=== PATIENT | female | born 1940 | race Caucasian/White ===

== ENCOUNTER 2021-09-02 22:17 | Inpatient (IN) ==
[2021-09-02] MEDS ORDERED: ALUM/MAG/SIMETH/LIDO VISC 1:1 30 ML BOTTLE PO ONE (22:52)
[2021-09-02] MEDS ORDERED: ALUM/MAG/SIMETH/LIDO VISC 1:1 30 ML BOTTLE PO STA (22:54)
[2021-09-02 23:02] LABS: Basophils # 0.1 10*3/uL (0.0-0.2); Basophils % 0.4 % (0.0-0.8); Eosinophils # 0.4 10*3/uL (0.0-0.87); Eosinophils % 3.1 % (0.00-10.9); Hematocrit 35.4 VOL% (35.7-47.0); Hemoglobin 10.9 GM/DL (12.0-16.0); Immature Granulocytes % 0.7 %; Lymphocytes # 2.9 10*3/uL (1.4-4.0); Lymphocytes % 21.3 % (21.3-54.2); Mean Corpuscular HGB Conc 30.8 GM/DL (32-36); Mean Corpuscular Volume 81.6 FL (87-102); Monocytes % 8.6 % (1.7-12.7); Neutrophils % 65.9 % (38.7-73.9); Platelet Count 423 T/CUMM (130-400); Red Blood Count 4.34 MC/CUMM (3.8-5.5); Red Cell Distribution Width 16.9 % (9.3-17.3); White Blood Count 13.7 T/CUMM (4-12)
[2021-09-02] MEDS ORDERED: ONDANSETRON 4 MG/2 ML VIAL IV ONE (23:06)
[2021-09-02] MEDS ORDERED: MORPHINE 2 MG/1 ML SYRINGE IV STA (23:06)
[2021-09-02 23:17] LABS: INR 0.9; PT Patient Result 10.6 SECS (10.5-12.0)
[2021-09-02 23:33] LABS: Albumin 3.6 G/DL (3.4-5.0); Bilirubin,Total 0.5 MG/DL (0.20-1.00); Calcium 9.3 MG/DL (8.5-10.1); Potassium 4.1 MMOL/L (3.5-5.1); Total Protein 7.5 G/DL (6.4-8.2)
[2021-09-03] MEDS ORDERED: HYDROmorphone 2 MG/1 ML VIAL IV STA (00:13)
[2021-09-03] MEDS ORDERED: PANTOPRAZOLE 40 MG VIAL IV STA (00:16)
[2021-09-03] MEDS ORDERED: LEVOFLOXACIN INJ 500 MG/100 ML PREMIX IV ONE (00:16)
[2021-09-03] MEDS ORDERED: PROMETHAZINE 25 MG/1 ML VIAL ONE ×2 (02:16→08:05)
[2021-09-03] MEDS ORDERED: ENOXAPARIN 40 MG/0.4 ML SYRINGE ONE (03:40)
[2021-09-03] MEDS ORDERED: ONDANSETRON 4 MG/2 ML VIAL ONE ×2 (07:18→13:35)
[2021-09-03] MEDS ORDERED: HYDROmorphone 2 MG/1 ML VIAL ONE ×3 (07:19→13:36)
[2021-09-03] MEDS ORDERED: PROMETHAZINE 25 MG/1 ML VIAL IM PRN (14:07)
[2021-09-03] MEDS ORDERED: hydrALAZINE 20 MG/1 ML VIAL IV PRN (14:07)
[2021-09-03] MEDS ORDERED: SIMETHICONE CHEW 125 MG TABLET PO PRN (14:07)
[2021-09-03] MEDS ORDERED: ONDANSETRON 4 MG/2 ML VIAL IV PRN (14:07)
[2021-09-03] MEDS ORDERED: DOCUSATE SODIUM 100 MG CAPSULE PO PRN (14:07)
[2021-09-03] MEDS ORDERED: GLUCAGON 1 MG VIAL IM PRN (14:07)
[2021-09-03] MEDS ORDERED: DEXTROSE 50% 25 GM/50 ML SYRINGE IV PRN (14:16)
[2021-09-03] MEDS: LACTATED RINGERS 1,000 ML IV SCH (14:45)
[2021-09-03 15:25] LABS: Hematocrit 33.5 VOL% (35.7-47.0); Hemoglobin 10.3 GM/DL (12.0-16.0); Lymphocytes % 17.3 % (21.3-54.2); Mean Corpuscular HGB Conc 30.7 GM/DL (32-36); Mean Corpuscular Volume 82.5 FL (87-102); Mean Platelet Volume 8.9 FL (9.6-12.0); Neutrophils % 67.7 % (38.7-73.9); Platelet Count 425 T/CUMM (130-400); Red Blood Count 4.06 MC/CUMM (3.8-5.5); Red Cell Distribution Width 16.8 % (9.3-17.3); White Blood Count 14.3 T/CUMM (4-12)
[2021-09-03 15:26] LABS: Basophils # 0.1 10*3/uL (0.0-0.2); Basophils % 0.5 % (0.0-0.8); Eosinophils # 0.6 10*3/uL (0.0-0.87); Eosinophils % 4.3 % (0.00-10.9); Immature Granulocytes % 0.7 %; Lymphocytes # 2.5 10*3/uL (1.4-4.0); Monocytes % 9.5 % (1.7-12.7)
[2021-09-03 15:27] LABS: Platelet Estimate Normal
[2021-09-03 16:47] LABS: Osmolality,Calculated 277.7 MOS/KG (273-304); Potassium 4.4 MMOL/L (3.5-5.1)
[2021-09-03] MEDS: HYDROmorphone 2 MG/1 ML VIAL IV PRN ×2 (17:00→21:59)
[2021-09-03 19:31] LABS: HDL Cholesterol 59 MG/DL (40-60); Risk Ratio 2.61; Thyroid Stimulating Hormone < 0.005 uIU/ml (0.358-3.74); Triglycerides 73 MG/DL (2-150); VLDL Cholesterol 14.6 MG/DL
[2021-09-03] MEDS: methylPREDNISolone SOD SUC 40 MG/1 ML VIAL IV SCH (21:51)
[2021-09-04] MEDS: methylPREDNISolone SOD SUC 40 MG/1 ML VIAL IV SCH ×3 (00:35→12:30)
[2021-09-04] MEDS: LACTATED RINGERS 1,000 ML IV SCH ×4 (00:41→23:56)
[2021-09-04] MEDS: LEVOFLOXACIN INJ 500 MG/100 ML PREMIX IV SCH (01:22)
[2021-09-04] MEDS: HYDROmorphone 2 MG/1 ML VIAL IV PRN ×4 (02:17→21:40)
[2021-09-04] MEDS: ACETAMINOPHEN 325 MG TABLET PO PRN (04:27)
[2021-09-04 05:14] LABS: Basophils % 0.4 % (0.0-0.8); Eosinophils # 0.1 10*3/uL (0.0-0.87); Eosinophils % 0.5 % (0.00-10.9); Hematocrit 32.1 VOL% (35.7-47.0); Hemoglobin 9.5 GM/DL (12.0-16.0); Immature Granulocytes % 0.8 %; Immature Granulocytes Absolute 0.08 #; Lymphocytes # 1.2 10*3/uL (1.4-4.0); Lymphocytes % 11.5 % (21.3-54.2); Mean Corpuscular HGB Conc 29.6 GM/DL (32-36); Mean Corpuscular Volume 83.6 FL (87-102); Mean Platelet Volume 9.1 FL (9.6-12.0); Monocytes % 1.6 % (1.7-12.7); Neutrophils % 85.2 % (38.7-73.9); Platelet Count 319 T/CUMM (130-400); Red Blood Count 3.84 MC/CUMM (3.8-5.5); Red Cell Distribution Width 16.9 % (9.3-17.3); White Blood Count 10.2 T/CUMM (4-12)
[2021-09-04] MEDS: LEVOTHYROXINE 150 MCG TABLET PO SCH (05:38)
[2021-09-04 05:45] LABS: Calcium 8.3 MG/DL (8.5-10.1); Osmolality,Calculated 274.8 MOS/KG (273-304)
[2021-09-04] MEDS: ASPIRIN EC 81 MG TABLET PO SCH (09:52)
[2021-09-04] MEDS: PANTOPRAZOLE 40 MG TABLET PO SCH (09:52)
[2021-09-04] MEDS: ENOXAPARIN 40 MG/0.4 ML SYRINGE SUBCUT SCH (09:53)
[2021-09-04] MEDS: ISOSORBIDE MONONITRATE 30 MG TABLET PO SCH (09:53)
[2021-09-04] MEDS: ALBUTEROL/IPRATROPIUM 3 ML NEB RESP TX SCH ×3 (12:29→20:03)
[2021-09-05] MEDS: LEVOFLOXACIN INJ 500 MG/100 ML PREMIX IV SCH (00:09)
[2021-09-05] MEDS: methylPREDNISolone SOD SUC 40 MG/1 ML VIAL IV SCH ×3 (00:09→23:08)
[2021-09-05] MEDS: ALBUTEROL/IPRATROPIUM 3 ML NEB RESP TX SCH ×4 (01:01→19:45)
[2021-09-05] MEDS: LACTATED RINGERS 1,000 ML IV SCH ×3 (01:25→17:40)
[2021-09-05] MEDS: HYDROmorphone 2 MG/1 ML VIAL IV PRN ×3 (05:13→23:08)
[2021-09-05 05:53] LABS: Basophils % 0.1 % (0.0-0.8); Hematocrit 31.2 VOL% (35.7-47.0); Hemoglobin 9.5 GM/DL (12.0-16.0); Immature Granulocytes % 0.5 %; Immature Granulocytes Absolute 0.04 #; Lymphocytes # 0.6 10*3/uL (1.4-4.0); Lymphocytes % 8.1 % (21.3-54.2); Mean Corpuscular HGB Conc 30.4 GM/DL (32-36); Mean Corpuscular Volume 82.8 FL (87-102); Mean Platelet Volume 8.8 FL (9.6-12.0); Monocytes % 2.5 % (1.7-12.7); Neutrophils % 88.8 % (38.7-73.9); Platelet Count 304 T/CUMM (130-400); Red Blood Count 3.77 MC/CUMM (3.8-5.5); Red Cell Distribution Width 16.3 % (9.3-17.3); White Blood Count 7.3 T/CUMM (4-12)
[2021-09-05] MEDS: LEVOTHYROXINE 150 MCG TABLET PO SCH (05:55)
[2021-09-05 06:14] LABS: Calcium 8.6 MG/DL (8.5-10.1); Potassium 3.4 MMOL/L (3.5-5.1)
[2021-09-05] MEDS: ENOXAPARIN 40 MG/0.4 ML SYRINGE SUBCUT SCH (08:37)
[2021-09-05] MEDS ORDERED: POTASSIUM CHLORIDE 20 MEQ TABLET PO ONE (09:00)
[2021-09-05] MEDS: ISOSORBIDE MONONITRATE 30 MG TABLET PO SCH (10:12)
[2021-09-05] MEDS: PANTOPRAZOLE 40 MG TABLET PO SCH (10:13)
[2021-09-05] MEDS: ASPIRIN EC 81 MG TABLET PO SCH (10:13)
[2021-09-06] MEDS: ALBUTEROL/IPRATROPIUM 3 ML NEB RESP TX SCH ×5 (00:49→19:41)
[2021-09-06] MEDS: LACTATED RINGERS 1,000 ML IV SCH (03:25)
[2021-09-06 04:47] LABS: Basophils % 0.2 % (0.0-0.8); Hematocrit 29.7 VOL% (35.7-47.0); Hemoglobin 9.2 GM/DL (12.0-16.0); Immature Granulocytes % 1.3 %; Immature Granulocytes Absolute 0.08 #; Lymphocytes # 0.8 10*3/uL (1.4-4.0); Lymphocytes % 13.1 % (21.3-54.2); Mean Corpuscular Volume 81.8 FL (87-102); Mean Platelet Volume 8.4 FL (9.6-12.0); Monocytes % 3.6 % (1.7-12.7); Neutrophils % 81.8 % (38.7-73.9); Platelet Count 274 T/CUMM (130-400); Red Blood Count 3.63 MC/CUMM (3.8-5.5); Red Cell Distribution Width 16.6 % (9.3-17.3); White Blood Count 6.4 T/CUMM (4-12)
[2021-09-06 05:31] LABS: Calcium 8.5 MG/DL (8.5-10.1); Osmolality,Calculated 280.5 MOS/KG (273-304); Potassium 4.4 MMOL/L (3.5-5.1)
[2021-09-06] MEDS: LEVOTHYROXINE 150 MCG TABLET PO SCH (05:35)
[2021-09-06] MEDS ORDERED: LEVOFLOXACIN 500 MG TABLET PO SCH (09:00)
[2021-09-06] MEDS: ISOSORBIDE MONONITRATE 30 MG TABLET PO SCH (09:15)
[2021-09-06] MEDS: PANTOPRAZOLE 40 MG TABLET PO SCH (09:15)
[2021-09-06] MEDS: ASPIRIN EC 81 MG TABLET PO SCH ×2 (09:16→09:20)
[2021-09-06] MEDS: ENOXAPARIN 40 MG/0.4 ML SYRINGE SUBCUT SCH (09:20)
[2021-09-06] MEDS ORDERED: propofoL 200 MG/20 ML VIAL IV ONE ×2 (10:25→11:51)
[2021-09-06] MEDS ORDERED: ETOMIDATE 40 MG/20 ML VIAL IV ONE (10:25)
[2021-09-06] MEDS ORDERED: LIDOCAINE 2% 5 ML VIAL ONE (10:25)
[2021-09-06] MEDS ORDERED: fentaNYL 100 MCG/2 ML VIAL ONE (10:25)
[2021-09-06] MEDS: ACETAMINOPHEN 325 MG TABLET PO PRN (10:26)
[2021-09-06] MEDS ORDERED: LACTATED RINGERS 1,000 ML IV SCH (11:00)
[2021-09-06] MEDS: HYDROmorphone 2 MG/1 ML VIAL IV PRN ×2 (13:29→21:46)
[2021-09-07] MEDS: ACETAMINOPHEN 325 MG TABLET PO PRN ×2 (00:53→10:30)
[2021-09-07] MEDS: ALBUTEROL/IPRATROPIUM 3 ML NEB RESP TX SCH ×2 (01:19→08:07)
[2021-09-07] MEDS: LEVOTHYROXINE 150 MCG TABLET PO SCH (05:51)
[2021-09-07] MEDS ORDERED: ALUMINUM/MAGNES/SIMETH MAX STR 30 ML UDCUP PO PRN (08:17)
[2021-09-07] MEDS ORDERED: methylPREDNISolone 4 MG TABLET PO SCH (09:00)
[2021-09-07] MEDS: ASPIRIN EC 81 MG TABLET PO SCH (09:05)
[2021-09-07] MEDS: ISOSORBIDE MONONITRATE 30 MG TABLET PO SCH (09:05)
[2021-09-07] MEDS: PANTOPRAZOLE 40 MG TABLET PO SCH (09:05)
[2021-09-07] MEDS: LACTATED RINGERS 1,000 ML IV SCH (09:43)
[2021-09-07] MEDS ORDERED: HYOSCYAMINE 0.125 MG TABLET PO SCH (11:30)
[2021-09-07] MEDS: HYDROmorphone 2 MG/1 ML VIAL IV PRN (12:23)
[2021-09-07 15:58] VITALS: BP 113/61
== END 2021-09-07 16:56 | disposition home or self-care (01) | DRG 477 ==
LOC: N.ED 22:17 → SUATTDRO 09-03 14:05 → N.EDINP 09-03 14:05 → N.TELES 09-03 20:38
PROVIDERS: ADMIT Emergency Medicine; ATTEND Internal Medicine

== ENCOUNTER 2021-11-02 08:59 | Inpatient (IN) ==
[2021-11-02] MEDS ORDERED: ONDANSETRON 4 MG/2 ML VIAL ONE (09:32)
[2021-11-02] MEDS ORDERED: HYDROmorphone 2 MG/1 ML VIAL ONE (09:32)
[2021-11-02 09:45] LABS: Basophils % 0.4 % (0.0-0.8); Eosinophils # 0.2 10*3/uL (0.0-0.87); Eosinophils % 2.3 % (0.00-10.9); Hematocrit 34.6 VOL% (35.7-47.0); Hemoglobin 10.9 GM/DL (12.0-16.0); Immature Granulocytes % 0.4 %; Immature Granulocytes Absolute 0.03 #; Lymphocytes # 2.1 10*3/uL (1.4-4.0); Lymphocytes % 26.5 % (21.3-54.2); Mean Corpuscular HGB Conc 31.5 GM/DL (32-36); Mean Platelet Volume 8.7 FL (9.6-12.0); Monocytes % 10.1 % (1.7-12.7); Neutrophils % 60.3 % (38.7-73.9); Platelet Count 280 T/CUMM (130-400); Red Blood Count 4.22 MC/CUMM (3.8-5.5); Red Cell Distribution Width 16.6 % (9.3-17.3); White Blood Count 7.9 T/CUMM (4-12)
[2021-11-02] MEDS ORDERED: SODIUM CHLORIDE 0.9% 1,000 ML IV STA (09:48)
[2021-11-02] MEDS ORDERED: HYDROmorphone 2 MG/1 ML VIAL IV STA ×2 (09:48→09:49)
[2021-11-02] MEDS ORDERED: ONDANSETRON 4 MG/2 ML VIAL IV STA (09:49)
[2021-11-02 09:57] LABS: Albumin 3.4 G/DL (3.4-5.0); Bilirubin,Total 0.4 MG/DL (0.20-1.00); Osmolality,Calculated 277.4 MOS/KG (273-304); Potassium 3.7 MMOL/L (3.5-5.1); Total Protein 6.7 G/DL (6.4-8.2)
[2021-11-02 10:02] LABS: Amorphous Crystals,Urine Occasional /HPF (Few); Bacteria,Urine Occasional /HPF (Few); Bilirubin,Urine Negative (Negative); Blood, Urine Negative (Negative); Glucose,Urine (UA) Negative (Negative); Hyaline Casts,Urine 1 /LPF (0-3); Ketones,Urine Negative (Negative); Mucus,Urine Occasional /LPF (Occasional); Nitrite,Urine Negative (Negative); Protein,Urine Negative; RBC,Urine 1 /HPF (0-4); Squamous Epithelial Cell,Urine Occasional /HPF (0-10); Urine Appearance CLEAR (Clear); Urine Color Yellow (Yellow); Urine Specific Gravity 1.009 (1.001-1.035); Urine Urobilinogen < 2.0 EU/DL (<2.0)
[2021-11-02] MEDS ORDERED: MAGNESIUM CITRATE 300 ML BOTTLE PO STA (10:42)
[2021-11-02] MEDS ORDERED: GLUCAGON 1 MG VIAL IM PRN (12:27)
[2021-11-02] MEDS ORDERED: SIMETHICONE CHEW 125 MG TABLET PO PRN (12:36)
[2021-11-02] MEDS ORDERED: DEXTROSE 10% 250 ML BAG IV PRN (12:36)
[2021-11-02] MEDS ORDERED: ALBUTEROL 2.5 MG/3 ML NEB RESP TX PRN (12:53)
[2021-11-02] MEDS: ONDANSETRON 4 MG/2 ML VIAL IV PRN ×2 (13:00→20:47)
[2021-11-02] MEDS ORDERED: PANTOPRAZOLE 40 MG TABLET PO SCH (14:00)
[2021-11-02 14:07] LABS: % Iron Saturation 7.8 % (18-50)
[2021-11-02 14:12] LABS: Folate 7.4 NG/ML (5.38-24.0)
[2021-11-02] MEDS: ENOXAPARIN 40 MG/0.4 ML SYRINGE SUBCUT SCH (14:30)
[2021-11-02] MEDS: SODIUM CHLORIDE 0.9% 1,000 ML IV SCH (14:30)
[2021-11-02] MEDS: cefTRIAXone 1,000 MG in SODIUM CHLORIDE 0.9% 100 ML IV SCH (14:30)
[2021-11-02] MEDS: PANTOPRAZOLE 40 MG VIAL IV SCH (14:35)
[2021-11-02] MEDS ORDERED: ALBUTEROL 1.25 MG/3 ML NEB RESP TX PRN (15:00)
[2021-11-02] MEDS: MORPHINE 2 MG/1 ML SYRINGE IV PRN ×2 (16:30→23:45)
[2021-11-02] MEDS: metroNIDAZOLE INJ 500 MG/100 ML PREMIX IV SCH (17:45)
[2021-11-02] MEDS: ALBUTEROL 0.4 MG/ML 30 ML/BOTTLE PO SCH ×2 (17:49→20:46)
[2021-11-02] MEDS: DOCUSATE SODIUM 100 MG CAPSULE PO SCH ×2 (20:07→20:45)
[2021-11-02] MEDS: POLYETHYLENE GLYCOL POWDER 17 GM PACK PO SCH ×2 (20:07→20:45)
[2021-11-03] MEDS: metroNIDAZOLE INJ 500 MG/100 ML PREMIX IV SCH ×2 (01:25→11:30)
[2021-11-03] MEDS: SODIUM CHLORIDE 0.9% 1,000 ML IV SCH ×2 (01:25→14:33)
[2021-11-03] MEDS: LEVOTHYROXINE 200 MCG TABLET PO SCH (05:50)
[2021-11-03 06:18] LABS: Basophils % 0.5 % (0.0-0.8); Eosinophils # 0.3 10*3/uL (0.0-0.87); Eosinophils % 5.5 % (0.00-10.9); Hematocrit 30.8 VOL% (35.7-47.0); Hemoglobin 9.2 GM/DL (12.0-16.0); Immature Granulocytes % 0.3 %; Immature Granulocytes Absolute 0.02 #; Lymphocytes # 1.6 10*3/uL (1.4-4.0); Lymphocytes % 26.1 % (21.3-54.2); Mean Corpuscular HGB Conc 29.9 GM/DL (32-36); Mean Corpuscular Volume 85.6 FL (87-102); Mean Platelet Volume 8.7 FL (9.6-12.0); Monocytes % 10.2 % (1.7-12.7); Neutrophils % 57.4 % (38.7-73.9); Platelet Count 264 T/CUMM (130-400); Red Cell Distribution Width 16.8 % (9.3-17.3); White Blood Count 6.2 T/CUMM (4-12)
[2021-11-03 06:49] LABS: Alanine Aminotransferase 14 U/L (13-56); Albumin 2.5 G/DL (3.4-5.0); Alkaline Phosphatase 66 U/L (45-117); Aspartate Amino Transferase 17 U/L (0-37); Bilirubin,Total < 0.39 MG/DL (0.20-1.00); Blood Urea Nitrogen 7 MG/DL (7-18); Calcium 7.4 MG/DL (8.5-10.1); Carbon Dioxide 26 MMOL/L (21-32); Estimated Glom Filtration Rate 89 ML/MIN; Glucose 79 MG/DL (74-106); Osmolality,Calculated 279.1 MOS/KG (273-304); Potassium 3.2 MMOL/L (3.5-5.1); Sodium 142 MMOL/L (136-145); Total Protein 5.4 G/DL (6.4-8.2)
[2021-11-03 07:11] LABS: Platelet Estimate Adequate
[2021-11-03] MEDS: POTASSIUM CHLORIDE RIDER 10 MEQ/100 ML PREMIX IV PRN ×2 (08:30→14:33)
[2021-11-03] MEDS: MORPHINE 2 MG/1 ML SYRINGE IV PRN (09:01)
[2021-11-03] MEDS: PANTOPRAZOLE 40 MG VIAL IV SCH (09:01)
[2021-11-03] MEDS: POLYETHYLENE GLYCOL POWDER 17 GM PACK PO SCH (09:02)
[2021-11-03] MEDS: methylPREDNISolone 4 MG TABLET PO SCH (09:03)
[2021-11-03] MEDS: ISOSORBIDE MONONITRATE 30 MG TABLET PO SCH (09:03)
[2021-11-03] MEDS: ASPIRIN EC 81 MG TABLET PO SCH (09:03)
[2021-11-03] MEDS: DOCUSATE SODIUM 100 MG CAPSULE PO SCH ×2 (10:28→21:52)
[2021-11-03] MEDS: ALBUTEROL 0.4 MG/ML 30 ML/BOTTLE PO SCH ×4 (10:29→21:53)
[2021-11-03] MEDS: HYDROmorphone 2 MG/1 ML VIAL IV PRN ×2 (11:25→22:23)
[2021-11-03] MEDS: ONDANSETRON 4 MG/2 ML VIAL IV PRN (14:26)
[2021-11-03] MEDS: PROMETHAZINE 25 MG/1 ML VIAL IM PRN (18:23)
[2021-11-03] MEDS: ENOXAPARIN 40 MG/0.4 ML SYRINGE SUBCUT SCH (21:52)
[2021-11-03] MEDS: cefTRIAXone 1,000 MG in SODIUM CHLORIDE 0.9% 100 ML IV SCH (21:53)
[2021-11-04] MEDS: SODIUM CHLORIDE 0.9% 1,000 ML IV SCH ×2 (00:49→04:44)
[2021-11-04 06:01] LABS: Basophils % 0.6 % (0.0-0.8); Eosinophils # 0.2 10*3/uL (0.0-0.87); Eosinophils % 2.2 % (0.00-10.9); Hematocrit 31.1 VOL% (35.7-47.0); Hemoglobin 9.2 GM/DL (12.0-16.0); Immature Granulocytes % 0.4 %; Immature Granulocytes Absolute 0.03 #; Lymphocytes # 2.1 10*3/uL (1.4-4.0); Lymphocytes % 30.8 % (21.3-54.2); Mean Corpuscular HGB Conc 29.6 GM/DL (32-36); Mean Corpuscular Volume 85.4 FL (87-102); Mean Platelet Volume 8.6 FL (9.6-12.0); Monocytes % 9.8 % (1.7-12.7); Neutrophils % 56.2 % (38.7-73.9); Platelet Count 266 T/CUMM (130-400); Red Blood Count 3.64 MC/CUMM (3.8-5.5); Red Cell Distribution Width 16.7 % (9.3-17.3); White Blood Count 6.7 T/CUMM (4-12)
[2021-11-04 06:30] LABS: Calcium 7.6 MG/DL (8.5-10.1); Osmolality,Calculated 278.1 MOS/KG (273-304); Potassium 3.3 MMOL/L (3.5-5.1)
[2021-11-04] MEDS: LEVOTHYROXINE 200 MCG TABLET PO SCH (06:33)
[2021-11-04] MEDS: DOCUSATE SODIUM 100 MG CAPSULE PO SCH ×2 (08:33→22:16)
[2021-11-04] MEDS: ISOSORBIDE MONONITRATE 30 MG TABLET PO SCH (08:33)
[2021-11-04] MEDS: ASPIRIN EC 81 MG TABLET PO SCH (08:33)
[2021-11-04] MEDS: HYDROmorphone 2 MG/1 ML VIAL IV PRN ×2 (08:34→17:55)
[2021-11-04] MEDS: PANTOPRAZOLE 40 MG VIAL IV SCH (08:35)
[2021-11-04] MEDS: methylPREDNISolone 4 MG TABLET PO SCH (09:37)
[2021-11-04] MEDS: ALBUTEROL 0.4 MG/ML 30 ML/BOTTLE PO SCH ×4 (09:37→22:16)
[2021-11-04] MEDS: ENOXAPARIN 40 MG/0.4 ML SYRINGE SUBCUT SCH (22:16)
[2021-11-04] MEDS: cefTRIAXone 1,000 MG in SODIUM CHLORIDE 0.9% 100 ML IV SCH (22:17)
[2021-11-05] MEDS: LEVOTHYROXINE 200 MCG TABLET PO SCH (05:57)
[2021-11-05] MEDS: HYDROmorphone 2 MG/1 ML VIAL IV PRN ×2 (06:12→16:06)
[2021-11-05 06:52] LABS: Basophils % 0.7 % (0.0-0.8); Eosinophils # 0.2 10*3/uL (0.0-0.87); Eosinophils % 4.1 % (0.00-10.9); Hematocrit 28.7 VOL% (35.7-47.0); Hemoglobin 8.7 GM/DL (12.0-16.0); Immature Granulocytes % 0.5 %; Immature Granulocytes Absolute 0.03 #; Lymphocytes # 2.1 10*3/uL (1.4-4.0); Lymphocytes % 36.8 % (21.3-54.2); Mean Corpuscular HGB Conc 30.3 GM/DL (32-36); Mean Corpuscular Volume 85.4 FL (87-102); Mean Platelet Volume 8.9 FL (9.6-12.0); Monocytes % 9.6 % (1.7-12.7); Neutrophils % 48.3 % (38.7-73.9); Platelet Count 264 T/CUMM (130-400); Red Blood Count 3.36 MC/CUMM (3.8-5.5); Red Cell Distribution Width 16.8 % (9.3-17.3); White Blood Count 5.8 T/CUMM (4-12)
[2021-11-05 07:09] LABS: Calcium 7.8 MG/DL (8.5-10.1); Osmolality,Calculated 277.3 MOS/KG (273-304); Potassium 3.1 MMOL/L (3.5-5.1)
[2021-11-05] MEDS: ASPIRIN EC 81 MG TABLET PO SCH (10:39)
[2021-11-05] MEDS: methylPREDNISolone 4 MG TABLET PO SCH (10:39)
[2021-11-05] MEDS: DOCUSATE SODIUM 100 MG CAPSULE PO SCH ×2 (10:39→20:31)
[2021-11-05] MEDS: ISOSORBIDE MONONITRATE 30 MG TABLET PO SCH (10:39)
[2021-11-05] MEDS: ALBUTEROL 0.4 MG/ML 30 ML/BOTTLE PO SCH ×4 (10:40→20:32)
[2021-11-05] MEDS: PANTOPRAZOLE 40 MG VIAL IV SCH (10:40)
[2021-11-05] MEDS: cefTRIAXone 1,000 MG in SODIUM CHLORIDE 0.9% 100 ML IV SCH (20:30)
[2021-11-05] MEDS: ENOXAPARIN 40 MG/0.4 ML SYRINGE SUBCUT SCH (20:32)
[2021-11-06] MEDS: POTASSIUM CHLORIDE RIDER 10 MEQ/100 ML PREMIX IV PRN ×2 (00:22→02:36)
[2021-11-06] MEDS: ONDANSETRON 4 MG/2 ML VIAL IV PRN ×2 (00:43→13:19)
[2021-11-06] MEDS: HYDROmorphone 2 MG/1 ML VIAL IV PRN ×2 (00:44→10:16)
[2021-11-06 05:26] LABS: Basophils % 0.3 % (0.0-0.8); Eosinophils # 0.5 10*3/uL (0.0-0.87); Eosinophils % 5.5 % (0.00-10.9); Hemoglobin 9.9 GM/DL (12.0-16.0); Immature Granulocytes % 0.3 %; Immature Granulocytes Absolute 0.03 #; Lymphocytes # 3.5 10*3/uL (1.4-4.0); Mean Corpuscular Volume 85.1 FL (87-102); Mean Platelet Volume 8.7 FL (9.6-12.0); Neutrophils % 45.9 % (38.7-73.9); Platelet Count 308 T/CUMM (130-400); Red Blood Count 3.88 MC/CUMM (3.8-5.5); White Blood Count 8.7 T/CUMM (4-12)
[2021-11-06 05:49] LABS: Calcium 8.3 MG/DL (8.5-10.1); Osmolality,Calculated 275.4 MOS/KG (273-304); Potassium 4.3 MMOL/L (3.5-5.1)
[2021-11-06] MEDS: LEVOTHYROXINE 200 MCG TABLET PO SCH (06:20)
[2021-11-06] MEDS: ALBUTEROL 0.4 MG/ML 30 ML/BOTTLE PO SCH ×4 (10:05→20:56)
[2021-11-06] MEDS: ASPIRIN EC 81 MG TABLET PO SCH (10:05)
[2021-11-06] MEDS: methylPREDNISolone 4 MG TABLET PO SCH (10:05)
[2021-11-06] MEDS: DOCUSATE SODIUM 100 MG CAPSULE PO SCH ×2 (10:05→20:56)
[2021-11-06] MEDS: ISOSORBIDE MONONITRATE 30 MG TABLET PO SCH (10:05)
[2021-11-06] MEDS: PANTOPRAZOLE 40 MG VIAL IV SCH (10:14)
[2021-11-06] MEDS ORDERED: ROPIVACAINE 0.5% 30 ML VIAL ONE (10:20)
[2021-11-06] MEDS ORDERED: TISSUE ADHESIVE 1 EACH APPLICATOR TOP ONE (10:21)
[2021-11-06] MEDS ORDERED: LIDOCAINE 2% 5 ML VIAL ONE (11:16)
[2021-11-06] MEDS ORDERED: propofoL 200 MG/20 ML VIAL IV ONE (11:16)
[2021-11-06] MEDS ORDERED: fentaNYL 100 MCG/2 ML VIAL ONE ×2 (11:17→12:18)
[2021-11-06] MEDS ORDERED: HYDROmorphone 2 MG/1 ML VIAL IV PRN (12:39)
[2021-11-06] MEDS: PROMETHAZINE 25 MG/1 ML VIAL IM PRN (17:16)
[2021-11-06] MEDS: cefTRIAXone 1,000 MG in SODIUM CHLORIDE 0.9% 100 ML IV SCH (20:55)
[2021-11-07] MEDS: LEVOTHYROXINE 200 MCG TABLET PO SCH (06:09)
[2021-11-07] MEDS: DOCUSATE SODIUM 100 MG CAPSULE PO SCH (08:50)
[2021-11-07] MEDS: ISOSORBIDE MONONITRATE 30 MG TABLET PO SCH (08:50)
[2021-11-07] MEDS: methylPREDNISolone 4 MG TABLET PO SCH (08:50)
[2021-11-07] MEDS: ASPIRIN EC 81 MG TABLET PO SCH (08:50)
[2021-11-07] MEDS: PANTOPRAZOLE 40 MG VIAL IV SCH (08:51)
[2021-11-07] MEDS: ALBUTEROL 0.4 MG/ML 30 ML/BOTTLE PO SCH (08:51)
[2021-11-07 10:42] VITALS: BP 121/66
== END 2021-11-07 11:59 | disposition home health service (06) | DRG 479 ==
LOC: EDUNIT# → EDBD → N.EDINP 08:59 → N.ED 08:59 → SUATTDRO 12:27 → N.EDINP 15:53 → N.5E 16:01 → SUATTDRO 11-04 14:31
PROVIDERS: ADMIT Internal Medicine; ATTEND Hospitalist